=== PATIENT | female | born 1955 | race Two or more races ===

== ENCOUNTER 2022-01-07 17:21 | Inpatient (IN) | payer MEDICARE, MEDICAID ==
[~2022-01-07] VITALS: Ht 154.9 cm; Wt 83.0 kg
[2022-01-07 19:06] LABS: Urine Bacteria NONE SEEN /hpf (None Seen); Urine Blood Negative /uL (Negative); Urine WBC 1 /hpf (0 - 5)
[2022-01-07 19:17] LABS: Basophils # (auto) 0 10 ^3/uL (0-0.2); Basophils % (auto) 0.9 % (0.0-2.0); Eosinophils # (auto) 0.1 10 ^3/uL (0-0.8); Eosinophils % (auto) 2.6 % (0.0-7.0); Hematocrit 37.1 % (36.0-46.0); Hemoglobin 12.8 g/dL (12.2-16.2); Lymphocytes # (auto) 1.6 10 ^3/uL (0.4-5.4); Mean Corpuscular Hemoglobin 30.6 pg (28.0-32.0); Mean Corpuscular Hgb Conc. 34.5 g/dL (32.0-36.0); Mean Corpuscular Volume 88.8 fL (80.0-100.0); Monocytes # (auto) 0.4 10 ^3/uL (0-1.3); Monocytes % (auto) 7.3 % (0.0-12.0); Neutrophils # (auto) 3.2 10 ^3/uL (1.6-8.6); Neutrophils % (auto) 59.2 % (37.0-80.0); Red Blood Cells 4.18 10^6/uL (4.0-5.20); Red Cell Distribution Width 13.4 % (11.8-14.3); White Blood Cell 5.4 10^3/uL (4.4-10.8)
[2022-01-07 19:41] LABS: Albumin 3.3 g/dL (3.4-5.0); BUN/Creatinine Ratio 16.7; Calcium 8.6 mg/dL (8.5-10.1)
[2022-01-07 19:44] LABS: Bilirubin, Total 0.8 mg/dL (0.2-1.0); Total Protein 7.3 g/dL (6.4-8.2)
[2022-01-07] MEDS ORDERED: HYDROcodone-ACET 5/325MG TAB PO ONE (20:30)
[2022-01-07] MEDS ORDERED: ONDANSETRON ODT 4 MG TAB PO ONE ×2 (20:37→20:45)
[2022-01-07] MEDS: fentaNYL CITRATE 100 MCG/2 ML VL IV ONE (20:42)
[2022-01-07] MEDS ORDERED: MORPHINE SULFATE INJECTION 2 MG/ML SYRG IV PRN (21:15)
[2022-01-07] MEDS ORDERED: DEXTROSE (50%) 50ML SYRG IV PRN (21:15)
[2022-01-07] MEDS: ACCU-CHEK COMFORT CURVE STRIP VI SCH (22:00)
[2022-01-07] MEDS: SODIUM CHLOR 0.9% PF (SALINE LOCK) 10ML VIAL/SYR IV SCH (22:00)
[2022-01-07] MEDS: InsuLIN REG 1unit/0.01ml Soln (100units/ml) SC SCH (22:00)
[2022-01-08] MEDS: fentaNYL CITRATE 100 MCG/2 ML VL IV ONE (01:31)
[2022-01-08] MEDS: ONDANSETRON HCL 4 MG/2 ML VIAL IV PRN ×2 (01:32→21:21)
[2022-01-08] MEDS: InsuLIN REG 1unit/0.01ml Soln (100units/ml) SC SCH ×5 (01:33→22:00)
[2022-01-08] MEDS ORDERED: MORPHINE SULFATE INJECTION 2 MG/ML SYRG IV PRN (02:00)
[2022-01-08] MEDS ORDERED: NITROGLYCERIN 0.4 MG SL TAB SL PRN (02:00)
[2022-01-08 05:00] VITALS: BP 119/41
[2022-01-08] MEDS ORDERED: POTA10TA32 PO (05:13)
[2022-01-08] MEDS ORDERED: NITR100C6 PO (05:13)
[2022-01-08] MEDS ORDERED: INSU100I4 SC (05:13)
[2022-01-08] MEDS ORDERED: INSUINJ37 SC (05:13)
[2022-01-08] MEDS ORDERED: EST0625T PO (05:13)
[2022-01-08] MEDS ORDERED: ROSU40TA PO (05:13)
[2022-01-08] MEDS ORDERED: ASPI-325 PO (05:13)
[2022-01-08] MEDS ORDERED: AMLO-489 PO (05:13)
[2022-01-08] MEDS ORDERED: FOLI1TAB6 PO (05:13)
[2022-01-08] MEDS ORDERED: CHOL20007 OR (05:13)
[2022-01-08] MEDS ORDERED: PITA2TAB PO (05:13)
[2022-01-08] MEDS ORDERED: CLOP75TA28 (05:13)
[2022-01-08] MEDS ORDERED: LEVO50TA7 PO (05:13)
[2022-01-08] MEDS ORDERED: FURO40TA4 PO (05:13)
[2022-01-08] MEDS ORDERED: LORA2TAB12 PO (05:13)
[2022-01-08] MEDS ORDERED: MAGN400T40 PO (05:14)
[2022-01-08 05:16] VITALS: BP 111/41
[2022-01-08] MEDS: LEVOTHYROXINE SODIUM 50 MCG TAB PO SCH (06:32)
[2022-01-08] MEDS: SODIUM CHLOR 0.9% PF (SALINE LOCK) 10ML VIAL/SYR IV SCH ×3 (06:32→22:06)
[2022-01-08] MEDS: ACCU-CHEK COMFORT CURVE STRIP VI SCH ×4 (06:33→22:07)
[2022-01-08 09:00] VITALS: BP 136/62
[2022-01-08] MEDS: CLOPIDOGREL BISULFATE 75 MG TAB PO SCH (10:00)
[2022-01-08 10:02] LABS: Calcium 8.4 mg/dL (8.5-10.1); Potassium 3.9 mmol/L (3.5-5.1)
[2022-01-08 10:05] LABS: Basophils # (auto) 0 10 ^3/uL (0-0.2); Eosinophils # (auto) 0.2 10 ^3/uL (0-0.8); Hematocrit 37.8 % (36.0-46.0); Hemoglobin 12.9 g/dL (12.2-16.2); Lymphocytes # (auto) 1.4 10 ^3/uL (0.4-5.4); Mean Corpuscular Hemoglobin 30.9 pg (28.0-32.0); Mean Corpuscular Hgb Conc. 34.2 g/dL (32.0-36.0); Mean Corpuscular Volume 90.4 fL (80.0-100.0); Monocytes # (auto) 0.4 10 ^3/uL (0-1.3); Monocytes % (auto) 8.7 % (0.0-12.0); Neutrophils # (auto) 2.4 10 ^3/uL (1.6-8.6); Neutrophils % (auto) 55.3 % (37.0-80.0); Nucleated Red Blood Cells % 0.2 %; Red Blood Cells 4.18 10^6/uL (4.0-5.20); Red Cell Distribution Width 13.4 % (11.8-14.3); White Blood Cell 4.4 10^3/uL (4.4-10.8)
[2022-01-08 10:07] LABS: Albumin 3.3 g/dL (3.4-5.0); BUN/Creatinine Ratio 13.9; Bilirubin, Total 1.1 mg/dL (0.2-1.0); Total Protein 7.5 g/dL (6.4-8.2)
[2022-01-08] MEDS ORDERED: PANTOPRAZOLE 40 MG/10 ML VIAL INJ IV ONE (11:00)
[2022-01-08] MEDS: ASPirin 81 mg TAB PO SCH (11:04)
[2022-01-08] MEDS: HYDROmorphone HCL 2 MG/ML VL/or syr IV PRN ×2 (11:42→15:43)
[2022-01-08 13:00] VITALS: BP 100/44
[2022-01-08 17:00] VITALS: BP 108/57
[2022-01-08] MEDS: PANTOPRAZOLE 40 MG/10 ML VIAL INJ IV SCH (21:20)
[2022-01-08 22:00] VITALS: BP 105/54
[2022-01-08] MEDS ORDERED: ATORVASTATIN 20 MG TAB PO SCH (22:00)
[2022-01-09 05:00] VITALS: BP 112/51
[2022-01-09] MEDS: SODIUM CHLOR 0.9% PF (SALINE LOCK) 10ML VIAL/SYR IV SCH ×3 (05:58→21:51)
[2022-01-09] MEDS: ACCU-CHEK COMFORT CURVE STRIP VI SCH ×4 (06:19→21:52)
[2022-01-09] MEDS: LEVOTHYROXINE SODIUM 50 MCG TAB PO SCH (06:19)
[2022-01-09] MEDS: InsuLIN REG 1unit/0.01ml Soln (100units/ml) SC SCH ×4 (06:20→21:55)
[2022-01-09] MEDS: PANTOPRAZOLE 40 MG/10 ML VIAL INJ IV SCH ×2 (08:55→21:51)
[2022-01-09] MEDS: CLOPIDOGREL BISULFATE 75 MG TAB PO SCH (08:55)
[2022-01-09] MEDS: ONDANSETRON HCL 4 MG/2 ML VIAL IV PRN (08:55)
[2022-01-09] MEDS: ASPirin 81 mg TAB PO SCH (08:55)
[2022-01-09 09:00] VITALS: BP 106/40
[2022-01-09 10:43] LABS: Calcium 8.8 mg/dL (8.5-10.1); Potassium 3.8 mmol/L (3.5-5.1)
[2022-01-09 10:49] LABS: Albumin 3.2 g/dL (3.4-5.0); BUN/Creatinine Ratio 13.9; Bilirubin, Total 0.9 mg/dL (0.2-1.0); Total Protein 7.3 g/dL (6.4-8.2)
[2022-01-09 13:00] VITALS: BP 114/44
[2022-01-09 13:21] LABS: Hepatitis B Surface Antibody Negative (Negative)
[2022-01-09 13:57] LABS: Hepatitis A Total Antibody Positive (Negative)
[2022-01-09] MEDS: ALPRAZolam 0.5 MG TAB PO SCH ×2 (14:00→21:52)
[2022-01-09 14:55] LABS: Hepatitis C Antibody Negative (Negative)
[2022-01-09 17:00] VITALS: BP 109/48
[2022-01-09 22:36] VITALS: BP 127/52
[2022-01-10] MEDS: MORPHINE SULFATE INJECTION 2 MG/ML SYRG IV PRN ×2 (01:46→06:31)
[2022-01-10] MEDS: ALPRAZolam 0.5 MG TAB PO SCH (06:00)
[2022-01-10 06:04] VITALS: BP 117/57
[2022-01-10] MEDS: SODIUM CHLOR 0.9% PF (SALINE LOCK) 10ML VIAL/SYR IV SCH (06:18)
[2022-01-10] MEDS: LEVOTHYROXINE SODIUM 50 MCG TAB PO SCH (06:19)
[2022-01-10] MEDS: ACCU-CHEK COMFORT CURVE STRIP VI SCH (06:19)
[2022-01-10] MEDS: InsuLIN REG 1unit/0.01ml Soln (100units/ml) SC SCH (06:19)
[2022-01-10 09:00] VITALS: BP 101/44
[2022-01-10] MEDS ORDERED: PANT40T PO (09:43)
[2022-01-10] MEDS ORDERED: ALPR1TAB2 PO (09:43)
[2022-01-10 12:27] VITALS: BP 101/44
[2022-01-10 13:00] VITALS: BP 120/57
== END 2022-01-10 14:34 | disposition home or self-care (01) | DRG 392 ==
LOC: ER 17:21 → EDBD 17:21 → CENTRAL 01-08 01:47
PROVIDERS: ADMIT Nurse Practitioner Family; ATTEND Family Medicine
DX: R10.84 Generalized abdominal pain (principal); E11.65 Type 2 diabetes mellitus with hyperglycemia; E66.9 Obesity, unspecified; E78.5 Hyperlipidemia, unspecified; I10 Essential (primary) hypertension; I25.10 Atherosclerotic heart disease of native coronary artery without angina pectoris; E78.00 Pure hypercholesterolemia, unspecified; Z96.641 Presence of right artificial hip joint; Z20.822 Contact with and (suspected) exposure to COVID-19; M25.551 Pain in right hip; R79.89 Other specified abnormal findings of blood chemistry; R74.8 Abnormal levels of other serum enzymes; K76.0 Fatty (change of) liver, not elsewhere classified; F41.9 Anxiety disorder, unspecified; Z79.02 Long term (current) use of antithrombotics/antiplatelets; Z79.82 Long term (current) use of aspirin; Z90.710 Acquired absence of both cervix and uterus; Z86.19 Personal history of other infectious and parasitic diseases; Z90.49 Acquired absence of other specified parts of digestive tract; Z95.5 Presence of coronary angioplasty implant and graft; Z88.0 Allergy status to penicillin; Z88.2 Allergy status to sulfonamides; Z68.34 Body mass index [BMI] 34.0-34.9, adult
CPT/HCPCS: 36415; 73700; 74176; 74181; 76705; 80053; 81001; 82962; 83036; 83690; 84443; 84484; 85025; 86704; 86706; 86708; 86803; 87340; 96374; 96375; C9113; G0378; J1815; J2405; Q0162

== ENCOUNTER → 2022-01-12 | Outpatient (CLI) | payer MEDICARE, MEDICAID ==
[~2022-01-12] MED LIST: ALPR1TAB2 PO; AMLO-489 PO; ASPI-325 PO; CHOL20007 OR; CLOP75TA28; EST0625T PO; FOLI1TAB6 PO; FURO40TA4 PO; INSU100I4 SC; INSUINJ37 SC; LEVO50TA7 PO; LORA2TAB12 PO; MAGN400T40 PO; NITR100C6 PO; PANT40T PO; PITA2TAB PO; POTA10TA32 PO; ROSU40TA PO
[2022-01-12 12:45] LABS: Albumin 3.6 g/dL (3.4-5.0); Calcium 9.3 mg/dL (8.5-10.1); Potassium 4.3 mmol/L (3.5-5.1)
[2022-01-12 12:49] LABS: BUN/Creatinine Ratio 18.6; Bilirubin, Direct 0.2 mg/dL (0-0.2); Bilirubin, Total 0.7 mg/dL (0.2-1.0)
== END | disposition home or self-care (01) ==
LOC: LAB 12:06
PROVIDERS: ATTEND Internal Medicine
DX: I10 Essential (primary) hypertension (principal)
CPT/HCPCS: 36415; 80053; 80076